=== PATIENT | female | born 1945 | race Caucasian/White ===

== ENCOUNTER 2020-06-23 10:40 | Emergency (ER) | payer OTHER, MEDICARE | END 2020-06-23 11:59 | disposition home or self-care (01) | LOC: JVIRT 10:40 | DX: Z20.822 Contact with and (suspected) exposure to COVID-19 (principal) | CPT/HCPCS: C9803; G2012-GT; U0003 ==

== ENCOUNTER 2023-11-12 04:40 | Day surgery (SDC) | payer OTHER, MEDICARE ==
[2023-11-06 09:56] VITALS: BMI 33.8
[2023-11-12] MEDS ORDERED: oxyCODONE HCL 5 MG TABLET PO PRN (08:30)
[2023-11-12] MEDS ORDERED: LACTATED RINGERS SOLUTION 1,000 ML IV SCH (08:30)
[2023-11-12] MEDS ORDERED: ONDANSETRON 4 MG/2 ML VIAL IVPUSH PRN (08:30)
[2023-11-12] MEDS ORDERED: PROMETHAZINE HCL 25 MG/1 ML VIAL IVPB PRN (08:30)
[2023-11-12] MEDS ORDERED: MIDAZOLAM HCL 2 MG/2 ML SINGLE DOSE VIAL ONE (08:50)
[2023-11-12] MEDS ORDERED: PROPOFOL 20 ML ONE (08:50)
[2023-11-12] MEDS ORDERED: FENTANYL CITRATE/PF 50 MCG/ML VIAL ONE ×2 (08:50→10:35)
[2023-11-12] MEDS ORDERED: LIDOCAINE HCL/PF 2% SDV 5ML VIAL ONE (08:52)
[2023-11-12] MEDS ORDERED: SODIUM CHLORIDE 0.9% P/F 10 ML VIAL IJ ONE (09:24)
[2023-11-12] MEDS ORDERED: ceFAZolin SODIUM 1 GM VIAL ONE (09:24)
[2023-11-12] MEDS: ceFAZolin SODIUM 1 GM VIAL IVPB ONE (09:26)
[2023-11-12] MEDS ORDERED: GLYCOPYRROLATE 0.2 MG/1 ML VIAL ONE (09:30)
[2023-11-12] MEDS ORDERED: DEXAMETHASONE SOD PHOSPHATE 4 MG/1 ML VIAL ONE (09:31)
[2023-11-12] MEDS ORDERED: ONDANSETRON 4 MG/2 ML VIAL ONE (09:31)
[2023-11-12] MEDS ORDERED: KETOROLAC TROMETHAMINE 30 MG/1 ML VIAL ONE (09:34)
[2023-11-12] MEDS ORDERED: ACETAMINOPHEN INJECTION 100 ML IVPB ONE (09:36)
[2023-11-12] MEDS ORDERED: METOPROLOL TARTRATE 5 MG/5 ML VIAL ONE (10:04)
[2023-11-12 12:03] VITALS: RESP 16
[2023-11-12 13:33] VITALS: BP 122/70; PULSE 65; TEMP 97
== END 2023-11-12 12:55 | disposition home or self-care (01) ==
LOC: JASU-SURG 04:40
PROVIDERS: ATTEND Obstetrics & Gynecology
PROC: 0UBM0ZX Excision of Vulva, Open Approach, Diagnostic (ICD-10-PCS; 2023-11-12)
PROC: 0UDB8ZX Extraction of Endometrium, Via Natural or Artificial Opening Endoscopic, Diagnostic (ICD-10-PCS; principal; 2023-11-12 09:00)
DX: N84.0 Polyp of corpus uteri (principal); N90.4 Leukoplakia of vulva
CPT/HCPCS: 86850; 86900; 86901; 88305-TC; 94760; J0131